=== PATIENT | male | born 1950 | race Caucasian/White ===

== ENCOUNTER → 2016-10-24 | Outpatient (CLI) | payer OTHER ==
[~2016-10-24] MED LIST: CELEBREX200 MG PO; CELEXA20 MG PO; CHOLESTEROL MED; COLACE100 MG PO; COQ(10)1010 MG PO; DESYREL100 MG PO; Duragesic 50 M50 MCG INTRADERM; Ecotrin325 MG PO; FENOFIBRATE160 MG PO; HYDR25T PO; IBUPROFEN800 MG PO; KEFLEX500 MG PO; LOVASTATIN20 MG PO; LOVENOX40 MG/0.4 SC; MEDROL DOSEPAK4 MG PO; MULTIVITAMIN1 CTB PO; NORFLEX100 MG PO; OMEPRAZOLE D/R20 MG PO; OMEPRAZOLE40 MG PO; PERCOCET 325 MG1 TA4 PO; PREVACID30 M1 PO; PRILOSEC20 MG PO; TRAMADOL HCL50 MG PO; TRAZADONE HYDR100 MG PO; VALIUM2 MG; VICODIN1 TAB PO; VITAMIN D5000 IU PO; XANAX0.25 MG PO; ZOFRAN ODT4 MG SL
== END | disposition home or self-care (01) ==
LOC: LAB 14:01
DX: C61 Malignant neoplasm of prostate (principal); R97.20 Elevated prostate specific antigen [PSA]

== ENCOUNTER → 2016-11-25 | Outpatient (CLI) | payer OTHER | END | disposition home or self-care (01) | LOC: LAB 10:44 | DX: C61 Malignant neoplasm of prostate (principal) ==

== ENCOUNTER → 2017-11-12 | Outpatient (CLI) | payer MEDICARE | END | disposition home or self-care (01) | LOC: LAB 12:13 | DX: E83.52 Hypercalcemia (principal) ==

== ENCOUNTER → 2021-11-04 | Outpatient (CLI) | payer MEDICARE | END | disposition home or self-care (01) | LOC: LAB 12:52 | PROVIDERS: ATTEND Urology | DX: R97.20 Elevated prostate specific antigen [PSA] (principal) ==

== ENCOUNTER → 2021-12-04 | Outpatient (CLI) | payer MEDICARE | END | disposition home or self-care (01) | LOC: LAB 10:11 | PROVIDERS: ATTEND Urology | DX: R97.20 Elevated prostate specific antigen [PSA] (principal) ==

== ENCOUNTER → 2022-12-02 | Outpatient (CLI) | payer MEDICARE ==
[~2022-12-02] MED LIST changes: +COZAAR100 MG PO; +GABAPENTIN100 M2 PO; +PRAMIPEXOLE DI0.5 MG PO; +VITAMIN D350 MC2 PO
== END | disposition home or self-care (01) ==
LOC: LAB 09:34
PROVIDERS: ATTEND Urology
DX: R97.20 Elevated prostate specific antigen [PSA] (principal)

== ENCOUNTER → 2023-10-22 | Outpatient (CLI) | payer MEDICARE | END | disposition home or self-care (01) | LOC: RESCLI 13:51 | PROVIDERS: ATTEND Student in an Organized Health Care Education/Training Program | DX: I10 Essential (primary) hypertension (principal); E78.5 Hyperlipidemia, unspecified; E03.9 Hypothyroidism, unspecified; F51.04 Psychophysiologic insomnia; F41.1 Generalized anxiety disorder; K21.9 Gastro-esophageal reflux disease without esophagitis; N40.0 Benign prostatic hyperplasia without lower urinary tract symptoms; E55.9 Vitamin D deficiency, unspecified; J30.2 Other seasonal allergic rhinitis; M19.90 Unspecified osteoarthritis, unspecified site; G25.81 Restless legs syndrome; Z88.5 Allergy status to narcotic agent; Z87.891 Personal history of nicotine dependence; Z79.899 Other long term (current) drug therapy ==